=== PATIENT | female | born 1965 | race Caucasian/White ===

== ENCOUNTER → 2017-06-20 | Outpatient (CLI) | payer OTHER ==
--- NOTE | 2017-06-20 12:37 | Diagnostic Imaging Report ---
INDICATION: Pain. FINDINGS: There is a fracture of the distal fibula at the lateral malleolus without displacement. There is overlying soft tissue swelling. The medial and posterior malleoli appeared intact. The plafond and talar dome, intact. No other injury. IMPRESSION: Nondisplaced distal fibular fracture with overlying soft tissue swelling. Dictated by: Dictated on workstation # [id number]
== END ==
LOC: RAD 11:41
PROVIDERS: ATTEND Family Medicine
DX: S82.64XA Nondisplaced fracture of lateral malleolus of right fibula, initial encounter for closed fracture (principal)
CPT/HCPCS: 73610